=== PATIENT | male | born 1970 | race Caucasian/White ===

== ENCOUNTER → 2024-05-18 | Day surgery (SDC) | payer BC ==
[2024-05-15 14:43] LABS: Absolute Basophils 0.1 K/uL (0-0.5); Absolute Eosinophils 0.2 K/uL (0-0.5); Absolute Lymphocytes (CBC) 2.5 K/uL (0.7-4.9); Absolute Monocytes 0.4 K/uL (0.1-1.3); Absolute Neutrophil 5.3 K/uL (1.8-8.0); Basophils % 0.7 % (0-1.3); Hematocrit 45.2 % (39.6-49.0); Lymphocytes % 29.6 % (15.3-44.8); MCH 30.6 pg (27.0-35.0); MCHC 33.2 g/dL (32.0-36.0); MCV 92.2 fL (80-100); MPV 8.5 fL (7.6-11.3); Monocytes % 4.7 % (3.3-12.3); Platelets 207 thou/uL (152-406); Red Cell Distribution Width 13.1 % (12.1-15.2)
--- NOTE | 2024-05-17 11:31 | EKG ---
Test Date: 2024-05-15 Test Time: 14:47:50 [employer] Technician: PHILOMENA MEASUREMENT RESULTS: Intervals: Rate: 70 MS: 142 QRSD: 96 QT: 386 QTc: 416 [place]: P: 47 MS: 142 QRS: 41 T: 64 INTERPRETIVE STATEMENTS: Normal sinus rhythm Normal ECG No previous ECG available for comparison Electronically Signed On 05-17-24 11:28:28 OPERATING SYSTEMS SPECIALIST by Nathan Stephens
[~2024-05-18] MED LIST: NA CHLORIDE 0.9% 1,000 ML ONE; propofoL 200 MG/20 ML VIAL IV ONE
[2024-05-18 10:08] VITALS: BP 118/78; TEMP 98.4; O2SAT 98
== END ==
LOC: OR 07:20
PROVIDERS: ATTEND Surgery
PROC: 0DBL8ZX Excision of Transverse Colon, Via Natural or Artificial Opening Endoscopic, Diagnostic (ICD-10-PCS; principal; 2024-05-18 08:30)
DX: Z12.11 Encounter for screening for malignant neoplasm of colon (principal); K64.8 Other hemorrhoids; K57.30 Diverticulosis of large intestine without perforation or abscess without bleeding; D12.3 Benign neoplasm of transverse colon; Z86.0100 Personal history of colon polyps, unspecified
CPT/HCPCS: 93005; 85025; 80048; 36415; 82947; 88305; 45380; J2704; J7030